=== PATIENT | male | born 1990 | race Caucasian/White ===

== ENCOUNTER 2016-11-02 01:31 | Emergency (ER) | payer BC ==
[~2016-11-02] VITALS: Ht 177.8 cm; Wt 72.7 kg
[2016-11-02 01:45] VITALS: TEMP 97.7
[2016-11-02] MEDS ORDERED: PREDNISONE20 MG PO (02:49)
[2016-11-02] MEDS ORDERED: EPIPEN 2-PAK1 MG/ML IM (02:49)
[2016-11-02] MEDS ORDERED: ZOFRAN8 MG PO (02:49)
[2016-11-02 03:00] VITALS: BP 138/79; PULSE 65
== END 2016-11-02 03:02 | disposition home or self-care (01) ==
LOC: COL.ER 01:31
DX: L50.9 Urticaria, unspecified (principal); R11.2 Nausea with vomiting, unspecified; R19.7 Diarrhea, unspecified; R10.9 Unspecified abdominal pain
CPT/HCPCS: J0171; J7512